=== PATIENT | male | born 1955 | race Caucasian/White ===

== ENCOUNTER 2022-03-11 19:51 | Inpatient (IN) ==
[2022-03-11 20:55] LABS: Basophils # 0.1 10*3/uL (0.0-0.2); Basophils % 0.4 % (0.0-0.8); Eosinophils # 0.1 10*3/uL (0.0-0.87); Eosinophils % 0.8 % (0.00-10.9); Hematocrit 51.1 VOL% (42.0-52.0); Hemoglobin 16.9 GM/DL (14.0-18.0); Immature Granulocytes % 0.5 %; Immature Granulocytes Absolute 0.06 #; Lymphocytes # 1.6 10*3/uL (1.4-4.0); Lymphocytes % 12.5 % (21.2-54.2); Mean Corpuscular HGB Conc 33.1 GM/DL (32-36); Mean Corpuscular Volume 89.5 FL (87-102); Mean Platelet Volume 10.7 FL (9.6-12.0); Monocytes # 1.2 10*3/uL (0.11-0.8); Monocytes % 8.9 % (1.7-12.7); Neutrophils % 76.9 % (38.7-73.9); Platelet Count 192 T/CUMM (130-400); Red Blood Count 5.71 MC/CUMM (3.8-5.5); Red Cell Distribution Width 13.7 % (9.3-17.3)
[2022-03-11] MEDS ORDERED: ALBUTEROL/IPRATROPIUM 3 ML NEB RESP TX STA (20:58)
[2022-03-11] MEDS ORDERED: MORPHINE 2 MG/1 ML SYRINGE IV STA (20:58)
[2022-03-11] MEDS ORDERED: methylPREDNISolone SOD SUC 125 MG/2 ML VIAL IV STA (20:58)
[2022-03-11] MEDS ORDERED: ONDANSETRON 4 MG/2 ML VIAL IV STA (20:58)
[2022-03-11] MEDS ORDERED: ASPIRIN 325 MG TABLET PO STA (20:58)
[2022-03-11] MEDS ORDERED: NITROGLYCERIN 2% OINT 1 INCH/GM PACK TOP STA (20:58)
[2022-03-11 21:14] LABS: Albumin 3.6 G/DL (3.4-5.0); Bilirubin,Total 2.2 MG/DL (0.20-1.00); Calcium 8.7 MG/DL (8.5-10.1); Osmolality,Calculated 279.5 MOS/KG (273-304); Potassium 4.2 MMOL/L (3.5-5.1); Total Protein 7.1 G/DL (6.4-8.2)
[2022-03-11] MEDS ORDERED: ENOXAPARIN 80 MG/0.8 ML SYRINGE SUBCUT ONE (21:21)
[2022-03-11] MEDS ORDERED: METOPROLOL TARTRATE 5 MG/5 ML VIAL IV ONE (21:33)
[2022-03-11] MEDS ORDERED: hydrALAZINE 20 MG/1 ML VIAL ONE (21:38)
[2022-03-11] MEDS ORDERED: HYDROmorphone 1 MG/1 ML SYRINGE ONE (21:38)
[2022-03-11] MEDS ORDERED: ENOXAPARIN 100 MG/ML SYRINGE SUBCUT STA (21:46)
[2022-03-11] MEDS ORDERED: METOPROLOL TARTRATE 5 MG/5 ML VIAL IV STA (21:56)
[2022-03-11] MEDS ORDERED: HYDROmorphone 1 MG/1 ML SYRINGE IV STA (21:56)
[2022-03-11] MEDS ORDERED: TICAGRELOR 90 MG TABLET PO STA (21:57)
[2022-03-11] MEDS ORDERED: NITROGLYCERIN SL 0.4 MG TABLET SL STA (21:58)
[2022-03-11] MEDS ORDERED: hydrALAZINE 20 MG/1 ML VIAL IV STA (22:00)
[2022-03-11] MEDS ORDERED: NITROGLYCERIN SL 0.4 MG TABLET SL ONE (22:05)
[2022-03-11] MEDS ORDERED: MORPHINE 2 MG/1 ML SYRINGE IV PRN (22:30)
[2022-03-11] MEDS ORDERED: hydrALAZINE 20 MG/1 ML VIAL IV PRN (22:30)
[2022-03-11] MEDS ORDERED: ONDANSETRON 4 MG/2 ML VIAL IV PRN (22:30)
[2022-03-11] MEDS ORDERED: ZALEPLON 5 MG CAPSULE PO PRN (22:30)
[2022-03-11] MEDS ORDERED: NICOTINE 21 MG/24 HR PATCH TRANSDERM PRN (22:30)
[2022-03-11] MEDS ORDERED: HYDROmorphone 1 MG/1 ML SYRINGE IV PRN (22:33)
[2022-03-11] MEDS ORDERED: LABETALOL 20 MG/4 ML SYRINGE IV ONE (22:40)
[2022-03-11] MEDS ORDERED: LABETALOL 20 MG/4 ML SYRINGE IV STA (22:43)
[2022-03-11 23:16] LABS: Mucus,Urine Occasional /LPF (Occasional); RBC,Urine 2 /HPF (0-4)
[2022-03-11 23:36] LABS: Barbiturates Screen,Urine Negative (Negative); Benzodiazepines Screen,Urine Negative (Negative); Cannabinoid Screen,Urine Positive (Negative); Opiate Screen,Urine Positive (Negative); Phencyclidine Screen,Urine Negative (Negative)
[2022-03-12 00:05] LABS: Bilirubin,Urine Small mg/dL (Negative); Blood, Urine Negative (Negative); Glucose,Urine (UA) Negative (Negative); Ketones,Urine 40 mg/dL (Negative); Nitrite,Urine Negative (Negative); Protein,Urine 30 mg/dL (Negative); Urine Appearance Clear (Clear); Urine Color Yellow (Yellow); Urine Specific Gravity >= 1.030 (1.001-1.035); Urine pH 5.5 (4.5-8.0)
[2022-03-12 01:11] VITALS: BP 165/86
[2022-03-12 01:40] LABS: Basophils % 0.2 % (0.0-0.8); Eosinophils % 0.1 % (0.00-10.9); Hematocrit 51.1 VOL% (42.0-52.0); Hemoglobin 17.2 GM/DL (14.0-18.0); Immature Granulocytes % 0.9 %; Immature Granulocytes Absolute 0.11 #; Lymphocytes # 0.9 10*3/uL (1.4-4.0); Lymphocytes % 7.3 % (21.2-54.2); Mean Corpuscular HGB Conc 33.7 GM/DL (32-36); Mean Corpuscular Volume 88.3 FL (87-102); Mean Platelet Volume 10.5 FL (9.6-12.0); Monocytes # 0.4 10*3/uL (0.11-0.8); Monocytes % 3.3 % (1.7-12.7); Neutrophils % 88.2 % (38.7-73.9); Platelet Count 171 T/CUMM (130-400); Red Blood Count 5.79 MC/CUMM (3.8-5.5); Red Cell Distribution Width 13.7 % (9.3-17.3); White Blood Count 12.8 T/CUMM (4-12)
[2022-03-12 01:54] LABS: INR 1.2; PT Patient Result 12.6 SECS (10.1-12.1); Partial Thromboplastin Time 42.6 SECS (23.7-32.9)
[2022-03-12 01:56] LABS: Calcium 8.9 MG/DL (8.5-10.1); Osmolality,Calculated 277.8 MOS/KG (273-304); Potassium 3.9 MMOL/L (3.5-5.1)
[2022-03-12] MEDS: methylPREDNISolone SOD SUC 40 MG/1 ML VIAL IV SCH ×2 (05:16→14:24)
[2022-03-12] MEDS: ALBUTEROL/IPRATROPIUM 3 ML NEB RESP TX SCH ×3 (06:55→14:24)
[2022-03-12] MEDS ORDERED: PANTOPRAZOLE 40 MG VIAL IV SCH (09:00)
[2022-03-12] MEDS ORDERED: ENOXAPARIN 80 MG/0.8 ML SYRINGE SUBCUT SCH (09:00)
[2022-03-12] MEDS ORDERED: TICAGRELOR 90 MG TABLET PO SCH (09:00)
[2022-03-12] MEDS ORDERED: ASPIRIN EC 81 MG TABLET PO SCH (09:10)
[2022-03-12] MEDS ORDERED: carvediloL 3.125 MG TABLET PO SCH (10:24)
[2022-03-12 10:41] LABS: Arterial Base Excess iSTAT -2 MMOL/L (-2.5-2.5); Arterial Bicarbonate iSTAT 20.6 MMOL/L (20-26); Arterial O2 Saturation iSTAT 94 % (95-100); Arterial PCO2 iSTAT 30 MM HG (35-48); Arterial PO2 iSTAT 68 MM HG (80-95); Arterial Total CO2 iSTAT 22 MMO/L (23-27); Arterial pH iSTAT 7.442 (7.35-7.45)
[2022-03-12 11:30] LABS: Risk Ratio 4.27; VLDL Cholesterol 12.8 MG/DL
== END 2022-03-12 13:50 | disposition left against medical advice (07) | DRG 282 ==
LOC: N.ED 19:51 → N.EDINP 22:30 → N.TELES 03-12 00:21
PROVIDERS: ADMIT Internal Medicine; ATTEND Internal Medicine